=== PATIENT | female | born 1955 | race Caucasian/White ===

== ENCOUNTER 2019-03-19 05:58 | Emergency (ER) | payer OTHER ==
[~2019-03-19] VITALS: Ht 162.6 cm; Wt 70.3 kg
[2019-03-19 06:02] VITALS: BP 147/94; Ht 162.6 cm; Wt 70.3 kg
== END 2019-03-19 07:14 | disposition home or self-care (01) ==
LOC: ED 05:58
DX: R25.2 Cramp and spasm (principal); M19.90 Unspecified osteoarthritis, unspecified site; Z86.79 Personal history of other diseases of the circulatory system